=== PATIENT | male | born 1970 | race Caucasian/White ===

== ENCOUNTER 2024-05-17 21:09 | Inpatient (IN) ==
--- NOTE | 2024-05-17 21:36 | Emergency Department Note ---
Impression & Plan Pneumonia, Acute exacerbation of chronic obstructive pulmonary disease, Hypoxia, Acute respiratory acidosis ED Provider Note NAME: RIKY HUNTER AGE: 53 SEX: M : 1970 ARRIVES VIA: Walk-In INFORMANT: Patient, ED PROVIDER(S): Gary Marcos DO CHIEF COMPLAINT: Coughing HPI: The patient is a 53-year-old male who has a history of tobacco use who presented to the emergency department for an evaluation of chest pain and difficulty breathing. The patient was an inpatient at [facility]. He left there yesterday and signed himself out AGAINST MEDICAL ADVICE because they "were not taking care of me ". The patient states that he was scheduled for surgery. The patient denies having any nausea or vomiting. He does complain of chest pain and difficulty breathing especially with ambulation. He states he has had a productive cough. ROS: See above HPI for pertinent positives & negatives. A total of 10 systems reviewed and were otherwise negative. PAST MEDICAL HISTORY: See Below PAST SURGICAL HISTORY: See Below FAMILY HISTORY: See Below SOCIAL HISTORY: See Below HOME MEDICATIONS: See Below ALLERGIES: See Below VITALS: See Below PHYSICAL EXAMINATION: GENERAL: The patient is awake and alert. He is somewhat anxious appearing. EYES: The conjunctivae are clear. The pupils are round and reactive. EARS, NOSE, MOUTH AND THROAT: The nose is without any evidence of any deformity. NECK: The neck is nontender and supple. RESPIRATORY: Diminished breath sounds are noted throughout. There is wheezing in all lung hayes. There was conversational dyspnea noted. CARDIOVASCULAR: Regular rate and rhythm noted there no murmurs rubs or gallops normal S1 normal S2. GASTROINTESTINAL: The abdomen is soft. Abdomen is nontender. MUSCULOSKELETAL/EXTREMITIES: There is no evidence of gross deformity full range of motion is noted in the hips and shoulders. SKIN: There is no obvious evidence of any rash. There are no petechiae, pallor or cyanosis noted. NEUROLOGIC: Patient is awake alert and oriented x3. Gait was steady. MEDICAL DECISION MAKING: The patient is a 53-year-old male who presented to the emergency department for difficulty breathing and cough. The patient was describing chest pain and cough. The patient was recently at another facility and was admitted and being treated for pneumonia but he left AGAINST MEDICAL ADVICE and then came here. I did obtain the patient's previous records from his recent discharge. I discussed the patient's laboratory and radiographic studies with him and his family member. He was treated with IV antibiotics. He was also treated with IV steroids and DuoNeb therapy. On reevaluation he was significantly improved but still had an oxygen requirement and still had significant wheezing. I [facility] have agreed to evaluate the patient in the emergency department for further management and disposition. Triage Nursing notes reviewed. Prior medical records reviewed Vital Signs: reviewed and remarkable for hypoxia. Differential diagnosis: Reactive airway disease, pneumonia, pneumothorax, COPD, CHF, infections, cardiac ischemia, pulmonary embolism, musculoskeletal, gastrointestinal, as well as other pathologies. ER treatment provided: See below Diagnostics interpreted by me: ECG: EKG was obtained in the emergency department. My interpretation is sinus tachycardia at 105 bpm. PACs were noted. PVCs were noted. No acute ST segment abnormalities were noted. No previous tracing was available. Cardiac Monitoring: An order was placed for continuous cardiac monitoring. The monitor shows a rate of 80 bpm with sinus rhythm. Laboratory studies: As stated above and show below. Imaging studies: See below. Radiographic imaging was reviewed by myself Consultation(s): I discussed this case with Dr. North [facility] COURSE: Procedures: none Critical Care: I have personally spent greater than 35 minutes of critical care time in the direct management of this patient. This includes bedside care, interpretation of diagnostic studies, and testing, discussion with consultants, patient, and family members, and other required patient management activities. This 35 minutes is in excess of all separately billable procedures. Past Med/Surg History Problem List (Updated 05/18/24 @ 00:10 by Gary Marcos DO) Acute respiratory acidosis (Acute) Hypoxia (Acute) Acute exacerbation of chronic obstructive pulmonary disease (Acute) Pneumonia (Acute) Medical History Tobacco use Pneumonia Social History Smoking Status: Current every day smoker Feels Safe at Home: Yes Allergies Allergies Allergy/AdvReac Type Severity Reaction Status Date / Time ampicillin Allergy Unknown Verified 05/18/24 00:02 mold Allergy Unknown Verified 05/18/24 00:02 Home Meds Home Medications Medication Instructions Recorded Confirmed No Known Home Medications 05/18/24 05/18/24 Results & Data (ED) Vital Signs Vital Signs - 24 hr 05/17/24 21:15 05/17/24 21:20 05/17/24 21:20 Temperature 36.7 C Temperature Source Temporal Artery Scan Pulse Rate 88 91 H Pulse Rate from SpO2 Sensor Pulse Rhythm Regular Pulse Strength Normal Respiratory Rate 20 22 Respiratory Effort / Characteristics Non-Labored Spontaneous Respiratory Depth Normal Respiratory Pattern Blood Pressure 189/90 H Blood Pressure Mean 123 Blood Pressure Position Sitting Pulse Oximetry 87 L 83 L 83 L Oxygen Delivery Method Room Air Room Air Room Air Oxygen Flow Rate Sepsis Recent Fever Within 48 Hours No Sepsis New/Unexplained Change in Mental Status N/A Sepsis Action Taken by Nursing No Action Required 05/17/24 21:28 05/17/24 21:31 05/17/24 21:33 Temperature Temperature Source Pulse Rate 80 80 Pulse Rate from SpO2 Sensor 76 Pulse Rhythm Pulse Strength Respiratory Rate 22 22 Respiratory Effort / Characteristics Non-Labored Spontaneous Respiratory Depth Normal Respiratory Pattern Regular Blood Pressure Blood Pressure Mean Blood Pressure Position Pulse Oximetry 91 93 Oxygen Delivery Method Nasal Cannula Nasal Cannula Oxygen Flow Rate 2 2 Sepsis Recent Fever Within 48 Hours Sepsis New/Unexplained Change in Mental Status Sepsis Action Taken by Nursing 05/17/24 21:42 05/17/24 22:00 05/17/24 22:03 Temperature Temperature Source Pulse Rate 97 H 96 H 84 Pulse Rate from SpO2 Sensor 78 78 79 Pulse Rhythm Pulse Strength Respiratory Rate 22 21 23 Respiratory Effort / Characteristics Respiratory Depth Respiratory Pattern Blood Pressure 141/92 H 155/80 H 155/80 H Blood Pressure Mean 108 105 105 Blood Pressure Position Pulse Oximetry 93 97 98 Oxygen Delivery Method Nasal Cannula Nasal Cannula Nasal Cannula Oxygen Flow Rate 2 2 2 Sepsis Recent Fever Within 48 Hours Sepsis New/Unexplained Change in Mental Status Sepsis Action Taken by Nursing 05/17/24 22:30 05/17/24 23:01 Temperature Temperature Source Pulse Rate 95 H 88 Pulse Rate from SpO2 Sensor 80 78 Pulse Rhythm Pulse Strength Respiratory Rate 19 22 Respiratory Effort / Characteristics Respiratory Depth Respiratory Pattern Blood Pressure 129/89 117/76 Blood Pressure Mean 102 92 Blood Pressure Position Pulse Oximetry 90 91 Oxygen Delivery Method Nasal Cannula Nasal Cannula Oxygen Flow Rate 2 2 Sepsis Recent Fever Within 48 Hours Sepsis New/Unexplained Change in Mental Status Sepsis Action Taken by Residential Medications Current Medication List: was personally reviewed by ne Laboratory Data Attestation: I reviewed the patient's lab results. 05/17/24 21:50 05/17/24 21:50 Lab Results 05/17/24 05/17/24 05/17/24 Range/Units 21:50 21:53 Unknown WBC 14.39 H (4.8-10.8) K/ul RBC 4.80 (4.70-6.10) M/uL Hgb 13.4 L (14.0-18.0) g/dl POC Hgb 13.9 L (14.0-18.0) g/dl Hct 41.0 L (42.0-52.0) % POC Hct 41 L (42-52) % MCV 85.4 (80.0-100.0) fL MCH 27.9 (25.0-34.0) pg MCHC 32.7 (32.0-36.0) g/dL RDW Std Deviation 49.6 H (36.4-46.3) fL RDW Coeff of Stephani 15.9 H (11.5-14.5) % Plt Count 350 (130-400) K/uL MPV 10.6 (9.4-12.4) fL Immature Gran % (Auto) 1.4 % Neut % (Auto) 81.8 % Lymph % (Auto) 11.0 % [place] % (Auto) 5.1 % Eos % (Auto) 0.5 % Baso % (Auto) 0.2 % Neut # (Auto) 11.78 H (1.40-6.50) K/uL Lymph # (Auto) 1.58 (1.20-3.40) K/uL [place] # (Auto) 0.73 H (0.11-0.59) K/uL Eos # (Auto) 0.07 (0.00-0.50) K/uL Baso # (Auto) 0.03 (0.00-0.20) K/uL Immature Gran # (Auto) 0.20 (0.01-0.20) K/uL PT 10.4 (9.0-12.0) Seconds INR 1.0 (0.9-1.1) APTT 23 (21-31) Seconds PTT Ratio 0.9 VBG pH 7.30 L (7.36-7.41) VBG pCO2 63 H (38-50) mmHg VBG pO2 39 mmHg VBG HCO3 31 mmol/L VBG O2 Saturation 60.8 % VBG Base Excess 2.8 mEq/L POC Sodium 137 (135-144) mmol/L Sodium 137 (136-145) mmol/L POC Potassium 3.7 (3.3-5.0) mmol/L Potassium 3.7 (3.5-5.1) mmol/L POC Chloride 98 L (101-112) mmol/L Chloride 100 (98-107) mmol/L Carbon Dioxide 32 (21-32) mmol/L POC Total CO2 30 (24-31) mmol/L Anion Gap 5 (3-11) POC Anion Gap 13.0 L (16-25) mmol/L POC BUN 27 H (7-18) mg/dl BUN 26 H (6-23) mg/dl Creatinine 1.21 (0.6-1.4) mg/dl POC Creatinine 1.3 (0.6-1.3) mg/dl Est Cr Clr Drug Dosing 87.1 ml/min Est GFR ( Amer) 77.6 ml/min Est GFR (Non-Af Amer) 67.0 ml/min BUN/Creatinine Ratio 21.5 H (10-20) Glucose 166 H (70-99(Fasting)) mg/dl POC Glucose (other) 158 H (70-99) mg/dl Lactate 1.1 (0.4-2.0) mmol/L Calcium 8.9 (8.6-10.3) mg/dl POC Ioniz Calcium Fatimah 1.19 (1.12-1.32) mmol/l Magnesium 2.1 (1.7-2.4) mg/dl Total Bilirubin 0.4 (0.2-1.0) mg/dl Direct Bilirubin 0.1 (0-0.2) mg/dl AST 142 H (13-39) U/L ALT 169 H (7-52) U/L Alkaline Phosphatase 69 (34-104) U/L Troponin I High Sens 23.3 H (0-20) pg/ml Total Protein 6.2 (6.0-8.3) gm/dl Albumin 3.2 L (3.4-5.0) gm/dl Procalcitonin 0.46 (0-0.5) ng/ml Adenovirus (PCR) Not Detected (NotDetected) B. pertussis DNA (PCR) Not Detected (NotDetected) B.parapertussis DNA PCR Not Detected (NotDetected) C. pneumoniae DNA (PCR) Not Detected (NotDetected) Coronavirus OC43 (PCR) Not Detected (NotDetected) Coronavirus HKU1 (PCR) Not Detected (NotDetected) Coronavirus 229E (PCR) Not Detected (NotDetected) SARS-CoV-2 (PCR) Not Detected (NotDetected) Coronavirus NL63 (PCR) Not Detected (NotDetected) Human Metapneumovir PCR Not Detected (NotDetected) Influenza Type A (PCR) Not Detected (NotDetected) Influenza Type B (PCR) Not Detected (NotDetected) M. pneumoniae (PCR) Not Detected (NotDetected) Parainfluenza 1 (PCR) Not Detected (NotDetected) Parainfluenza 2 (PCR) Not Detected (NotDetected) Parainfluenza 3 (PCR) Not Detected (NotDetected) Parainfluenza 4 (PCR) Not Detected (NotDetected) RSV (PCR) Not Detected (NotDetected) Entero/Rhino (PCR) Not Detected (NotDetected) Administered Medications Discontinued Medications Albuterol (Albut/Ipratrop 3mg/0.5mg Neb 3 Ml Vial) 3 ml NEB NOW STA; Protocol Stop: 05/17/24 21:35 Last Admin: 05/17/24 21:39 Dose: 3 ml Documented By: DEMETRICE Albuterol (Albut/Ipratrop 3mg/0.5mg Neb 3 Ml Vial) 3 ml NEB NOW STA; Protocol Stop: 05/17/24 23:00 Last Admin: 05/17/24 23:19 Dose: 3 ml Documented By: MARIYA Ceftriaxone Sodium (Rocephin) 2,000 mg in 50 mls @ 100 mls/hr IV NOW STA Stop: 05/17/24 23:14 Last Infusion: 05/17/24 23:26 Dose: Infused Documented By: Admin: 05/17/24 22:58 Dose: 100 mls/hr Documented By: DEMETRICE Methylprednisolone (Methylprednisolone 125 Mg/2 Ml Vial) 125 mg IV NOW STA Stop: 05/17/24 23:00 Last Admin: 05/17/24 23:19 Dose: 125 mg Documented By: MARIYA Imaging Data Attestation: I personally reviewed and interpreted this imaging study as follows: My Impression: 1 view chest x-ray was obtained in the emergency department. My interpretation is right sided infiltrate was noted, there is no free air, final report pending. Discharge Plan Visit Data Chief Complaint: Chest Pain Stated Complaint: PNUEMONIA ED Provider: Gary Marcos Discharge Problem: Pneumonia, Acute exacerbation of chronic obstructive pulmonary disease, Hypoxia, Acute respiratory acidosis Patient Disposition: Being Evaluated by Hospitalist Forms Stand Alone Forms: My [facility], Important Visit Information Prescriptions Prescriptions: No Action No Known Home Medications Referrals Referrals: PCP,NO [Primary Care Provider] - Discharge Problem: Pneumonia Qualifiers: Pneumonia type: due to unspecified organism Laterality: right Lung location: l ower lobe of lung Qualified Code(s): J18.9 - Pneumonia, unspecified organism
[2024-05-17] MEDS: ALBUT/IPRATROP 3MG/0.5MG NEB 3 ML VIAL NEB STA ×2 (21:39→23:19)
[2024-05-17 22:02] LABS: Base Excess VBG 2.8 mEq/L; HCO3 VBG 31 mmol/L; Oxygen Saturation VBG 60.8 %; PCO2 VBG 63 mmHg (38-50); PO2 VBG 39 mmHg
[2024-05-17 22:05] LABS: iSTAT Creatinine 1.3 mg/dl (0.6-1.3); iSTAT Hemoglobin 13.9 g/dl (14.0-18.0); iSTAT Ionized Calcium 1.19 mmol/l (1.12-1.32); iSTAT Potassium 3.7 mmol/L (3.3-5.0)
[2024-05-17 22:08] LABS: Basophils # (auto) 0.03 K/uL (0.00-0.20); Basophils % (auto) 0.2 %; Eosinophils # (auto) 0.07 K/uL (0.00-0.50); Eosinophils % (auto) 0.5 %; Hemoglobin 13.4 g/dl (14.0-18.0); Immature Granulocytes % (auto) 1.4 %; Lymphocytes # (auto) 1.58 K/uL (1.20-3.40); Mean Corpuscular Hemoglobin 27.9 pg (25.0-34.0); Mean Corpuscular Hgb Conc 32.7 g/dL (32.0-36.0); Mean Corpuscular Volume 85.4 fL (80.0-100.0); Mean Platelet Volume 10.6 fL (9.4-12.4); Monocytes # (auto) 0.73 K/uL (0.11-0.59); Monocytes % (auto) 5.1 %; Neutrophils # (auto) 11.78 K/uL (1.40-6.50); Neutrophils % (auto) 81.8 %; Platelet Count 350 K/uL (130-400); RDW Coefficient of Variation 15.9 % (11.5-14.5); RDW Standard Deviation 49.6 fL (36.4-46.3); White Blood Count 14.39 K/ul (4.8-10.8)
[2024-05-17 22:25] LABS: Albumin Level 3.2 gm/dl (3.4-5.0); BUN Creatinine Ratio 21.5 (10-20); Bilirubin Direct 0.1 mg/dl (0-0.2); Bilirubin,Total 0.4 mg/dl (0.2-1.0); Calcium 8.9 mg/dl (8.6-10.3); Creatinine Clr Calc Pharmacy 87.1 ml/min; Est GFR (African American) 77.6 ml/min; Magnesium 2.1 mg/dl (1.7-2.4); Potassium 3.7 mmol/L (3.5-5.1); Total Protein 6.2 gm/dl (6.0-8.3)
[2024-05-17 22:32] LABS: Troponin I High Sensitivity 23.3 pg/ml (0-20)
[2024-05-17 22:34] LABS: Adenovirus PCR Not Detected (NotDetected); Bordetella parapertussis PCR Not Detected (NotDetected); Bordetella pertussis PCR Not Detected (NotDetected); Chlamydia pneumoniae PCR Not Detected (NotDetected); Coronavirus 229E PCR Not Detected (NotDetected); Coronavirus CoV-2 (COVID19)PCR Not Detected (NotDetected); Coronavirus HKU1 PCR Not Detected (NotDetected); Coronavirus NL63 PCR Not Detected (NotDetected); Coronavirus OC43PCR Not Detected (NotDetected); Human Metapneumovirus PCR Not Detected (NotDetected); Influenza A PCR Not Detected (NotDetected); Influenza B PCR Not Detected (NotDetected); Mycoplasma pneumoniae PCR Not Detected (NotDetected); Parainfluenza Virus 1 PCR Not Detected (NotDetected); Parainfluenza Virus 2 PCR Not Detected (NotDetected); Parainfluenza Virus 3 PCR Not Detected (NotDetected); Parainfluenza Virus 4 PCR Not Detected (NotDetected); Respiratory Syncytial VirusPCR Not Detected (NotDetected); Rhinovirus/Enterovirus PCR Not Detected (NotDetected)
[2024-05-17 22:42] LABS: Partial Thromboplastin Ratio 0.9; Partial Thromboplastin Time 23 Seconds (21-31); Prothrombin Time 10.4 Seconds (9.0-12.0)
[2024-05-17] MEDS: cefTRIAXone SODIUM 2,000 MG/50 ML BAG IV STA (22:58)
[2024-05-17] MEDS: methylPREDNISolone 125 MG/2 ML VIAL IV STA (23:19)
--- NOTE | 2024-05-17 23:53 | History & Physical Report ---
Date of Service May 17, 2024 Assessment & Plan (1) Acute respiratory failure with hypoxia: (2) Right lower lobe pneumonia: (3) Acute exacerbation of chronic obstructive pulmonary disease: (4) Chronic kidney disease (CKD), stage III (moderate): (5) History of hypokalemia: (6) Hypomagnesemia: (7) Hyperglycemia: (8) Morbid obesity with BMI of 45.0-49.9, adult: (9) Tobacco use: (10) Elevated troponin: Plan Acute respiratory failure with hypoxia/right lower lobe pneumonia with parapneumonic effusion/COPD exacerbation/obesity hypoventilation syndrome- Chest x-ray reveals a consolidated right lower lobe pneumonia, likely postobstructive Respiratory BioFire test negative Treatment at previous facility was ceftriaxone IV and azithromycin IV Will place on cefepime 2 g IV every 8 hours and Flagyl 500 mg IV every 8 hours Duonebs every 4 hours while awake and every 2 hours when necessary. Guaifenesin extended release 1200 mg p.o. every 12 hours Solu-Medrol 40 mg IV every 12 hours after receiving 125 mg IV in the ED Sputum Gram stain and culture Thoracentesis was attempted at [facility] [address], and reportedly had a dry tap N.p.o. after midnight Likely has an element of sleep apnea as well Consult pulmonology CKD stage III- Review of laboratories from outside hospital revealed initial creatinine 1.84 on 05/14, then 1.93 on 05/15, then 1.51 on 05/16 Creatinine on admission today is 1.21 NSS + KCl 20 mEq at 80 mL/h x 1 L Repeat laboratories in a.m. Elevated troponin- Troponin was 23.3 upon admission, follow-up pending Patient did have an echocardiogram performed at [facility] on 05/16/2024 with ejection fraction 60-65% Abnormal LFTs- AST 142, ALT 169 No abdominal complaints If laboratories are still elevated in the a.m., could proceed with ultrasound Suspect likely secondary metabolic syndrome. Check a fasting lipid panel and hemoglobin A1c Recent hypokalemia- Potassium on 05/14 was 2.6, 05/15 was 4.0, on 05/16 was 4.1. Potassium on admission today is 3.7 Repeat in the a.m. Hyperglycemia- Glucose 166 on admission Hold on Accu-Cheks, and will consider if glucose prior to morning Check hemoglobin A1c and fasting lipid panel History of Present Illness Chief Complaint: The patient presents to the emergency department with complaint of chest pain with inhalation, shortness of breath at rest, and dyspnea on exertion, that have persisted and worsened since he left [facility] AGAINST MEDICAL ADVICE on 05/17, where he was being treated for pneumonia. Primary Care Provider: NO PCP The patient is a 53-year-old male with a past medical history including tobacco abuse, morbid obesity, COPD and recent diagnosis of pneumonia. He reports having symptoms that began about 5 weeks ago, which consisted of generalized fatigue, weakness, chest pain with breathing, shortness of breath at rest and dyspnea on exertion. He initially went to an acute care center, then was ad vised to come to an emergency department, and he went to [facility] on 05/14. He was admitted there from 05/14-05/16 for right lower lobe pneumonia, for which he received Solu-Medrol initial dosing of 125 mg IV, DuoNeb's x 3, ceftriaxone IV, azithromycin IV, magnesium 2 g IV and potassium chloride 10 mEq IV. On 05/17, he was transferred to [facility] [address], where he underwent a thoracentesis that was reported as dry, due to consolidation in the right lower lobe. The next plan there was to undergo a bronchoscopy, however, patient left AMA, and arrived to [facility] emergency department evening of 05/17, where he was then presented for admission to the [facility] hospitalist service. Allergies Allergy/AdvReac Type Severity Reaction Status Date / Time ampicillin Allergy Unknown Verified 05/18/24 00:02 mold Allergy Unknown Verified 05/18/24 00:02 Home Medications Medication Instructions Recorded Confirmed Type No Known Home Medications 05/18/24 05/18/24 History Past Med/Surg History Problem List (Updated 05/18/24 @ 01:30 by Jose G Lema MD) Elevated troponin Morbid obesity with BMI of 45.0-49.9, adult Hyperglycemia Chronic kidney disease (CKD), stage III (moderate) Tobacco use Right lower lobe pneumonia Acute respiratory failure with hypoxia Acute respiratory acidosis (Acute) Hypoxia (Acute) Acute exacerbation of chronic obstructive pulmonary disease (Acute) Pneumonia (Acute) Medical History (Updated 05/18/24 @ 01:30 by Jose G Lema MD) Hypomagnesemia History of hypokalemia Pneumonia Social History Smoking Status: Current every day smoker Feels Safe at Home: Yes Review of Systems Review of Systems: The patient denies palpitations, lower extremity swelling, sore throat, fevers, chills, sweats, nausea, vomiting, diarrhea , constipation, abdominal pain, pelvic pain, blood in urine or stool, dysuria, urinary frequency or urgency, lightheadedness, dizziness, headache, memory loss, loss of consciousness, rash, abnormal bruising or bleeding, imbalance, focal weakness, numbness or tingling in arms or legs, back or neck pain, or night sweats. The review of systems is otherwise negative other than for that already noted above, and at least 10 systems have been reviewed. Physical Exam Physical Exam: The patient is awake, alert and oriented 3, well developed and well nourished, normocephalic and atraumatic, lying in bed and in mild respiratory distress. HEENT--PERRL, EOMI, mucous membranes and oropharynx dry. Neck--supple. No JVD. No bruits. Thyroid normal, trachea midline, no adenopathy. Heart--normal S1 and S2. No murmurs, rubs or gallops. Lungs--decreased breath sounds right base. Mild respiratory distress, no accessory muscle use. Abdomen--normal bowel sounds and soft. Nontender. Nondistended. Morbidly obese Extremities--No edema. Dermatologic--normal skin turgor, normal color, no abnormal lymph nodes, no rash. Neurologic--cranial nerves II through XII grossly intact. Rheumatologic-limited exam due to shortness of breath Psychiatric--normal affect. Results & Data Results & Data Vital Signs (Past 12 Hours) Vital Signs Temp Pulse Resp BP Pulse Ox O2 Del Method O2 Flow Rate 05/17/24 23:01 88 22 117/76 91 Nasal Cannula 2 05/17/24 22:30 95 H 19 129/89 90 Nasal Cannula 2 05/17/24 22:03 84 23 155/80 H 98 Nasal Cannula 2 05/17/24 22:00 96 H 21 155/80 H 97 Nasal Cannula 2 05/17/24 21:42 97 H 22 141/92 H 93 Nasal Cannula 2 05/17/24 21:33 80 22 93 Nasal Cannula 2 05/17/24 21:31 80 05/17/24 21:28 22 91 Nasal Cannula 2 05/17/24 21:20 91 H 22 83 L Room Air 05/17/24 21:20 83 L Room Air 05/17/24 21:15 36.7 C 88 20 189/90 H 87 L Room Air Laboratory Results Laboratory Results WBC 14.39 K/ul (4.8-10.8) H 05/17/24 21:50 RBC 4.80 M/uL (4.70-6.10) 05/17/24 21:50 Hgb 13.4 g/dl (14.0-18.0) L 05/17/24 21:50 POC Hgb 13.9 g/dl (14.0-18.0) L 05/17/24 21:53 Hct 41.0 % (42.0-52.0) L 05/17/24 21:50 POC Hct 41 % (42-52) L 05/17/24 21:53 MCV 85.4 fL (80.0-100.0) 05/17/24 21:50 MCH 27.9 pg (25.0-34.0) 05/17/24 21:50 MCHC 32.7 g/dL (32.0-36.0) 05/17/24 21:50 RDW Std Deviation 49.6 fL (36.4-46.3) H 05/17/24 21:50 RDW Coeff of Stephani 15.9 % (11.5-14.5) H 05/17/24 21:50 Plt Count 350 K/uL (130-400) 05/17/24 21:50 MPV 10.6 fL (9.4-12.4) 05/17/24 21:50 Immature Gran % (Auto) 1.4 % 05/17/24 21:50 Neut % (Auto) 81.8 % 05/17/24 21:50 Lymph % (Auto) 11.0 % 05/17/24 21:50 [place] % (Auto) 5.1 % 05/17/24 21:50 Eos % (Auto) 0.5 % 05/17/24 21:50 Baso % (Auto) 0.2 % 05/17/24 21:50 Neut # (Auto) 11.78 K/uL (1.40-6.50) H 05/17/24 21:50 Lymph # (Auto) 1.58 K/uL (1.20-3.40) 05/17/24 21:50 [place] # (Auto) 0.73 K/uL (0.11-0.59) H 05/17/24 21:50 Eos # (Auto) 0.07 K/uL (0.00-0.50) 05/17/24 21:50 Baso # (Auto) 0.03 K/uL (0.00-0.20) 05/17/24 21:50 Immature Gran # (Auto) 0.20 K/uL (0.01-0.20) 05/17/24 21:50 PT 10.4 Seconds (9.0-12.0) 05/17/24 21:50 INR 1.0 (0.9-1.1) 05/17/24 21:50 APTT 23 Seconds (21-31) 05/17/24 21:50 PTT Ratio 0.9 05/17/24 21:50 VBG pH 7.30 (7.36-7.41) L 05/17/24 21:50 VBG pCO2 63 mmHg (38-50) H 05/17/24 21:50 VBG pO2 39 mmHg 05/17/24 21:50 VBG HCO3 31 mmol/L 05/17/24 21:50 VBG O2 Saturation 60.8 % 05/17/24 21:50 VBG Base Excess 2.8 mEq/L 05/17/24 21:50 POC Sodium 137 mmol/L (135-144) 05/17/24 21:53 Sodium 137 mmol/L (136-145) 05/17/24 21:50 POC Potassium 3.7 mmol/L (3.3-5.0) 05/17/24 21:53 Potassium 3.7 mmol/L (3.5-5.1) 05/17/24 21:50 POC Chloride 98 mmol/L (101-112) L 05/17/24 21:53 Chloride 100 mmol/L (98-107) 05/17/24 21:50 Carbon Dioxide 32 mmol/L (21-32) 05/17/24 21:50 POC Total CO2 30 mmol/L (24-31) 05/17/24 21:53 Anion Gap 5 (3-11) 05/17/24 21:50 POC Anion Gap 13.0 mmol/L (16-25) L 05/17/24 21:53 POC BUN 27 mg/dl (7-18) H 05/17/24 21:53 BUN 26 mg/dl (6-23) H 05/17/24 21:50 Creatinine 1.21 mg/dl (0.6-1.4) 05/17/24 21:50 POC Creatinine 1.3 mg/dl (0.6-1.3) 05/17/24 21:53 Est Cr Clr Drug Dosing 87.1 ml/min 05/17/24 21:50 Est GFR ( Amer) 77.6 ml/min 05/17/24 21:50 Est GFR (Non-Af Amer) 67.0 ml/min 05/17/24 21:50 BUN/Creatinine Ratio 21.5 (10-20) H 05/17/24 21:50 Glucose 166 mg/dl (70-99(Fasting)) H 05/17/24 21:50 POC Glucose (other) 158 mg/dl (70-99) H 05/17/24 21:53 Lactate 1.1 mmol/L (0.4-2.0) 05/17/24 21:50 Calcium 8.9 mg/dl (8.6-10.3) 05/17/24 21:50 POC Ioniz Calcium Fatimah 1.19 mmol/l (1.12-1.32) 05/17/24 21:53 Magnesium 2.1 mg/dl (1.7-2.4) 05/17/24 21:50 Total Bilirubin 0.4 mg/dl (0.2-1.0) 05/17/24 21:50 Direct Bilirubin 0.1 mg/dl (0-0.2) 05/17/24 21:50 AST 142 U/L (13-39) H 05/17/24 21:50 ALT 169 U/L (7-52) H 05/17/24 21:50 Alkaline Phosphatase 69 U/L (34-104) 05/17/24 21:50 Troponin I High Sens 23.3 pg/ml (0-20) H 05/17/24 21:50 Total Protein 6.2 gm/dl (6.0-8.3) 05/17/24 21:50 Albumin 3.2 gm/dl (3.4-5.0) L 05/17/24 21:50 Procalcitonin 0.46 ng/ml (0-0.5) 05/17/24 21:50 Adenovirus (PCR) Not Detected (NotDetected) 05/17/24 Unknown B. pertussis DNA (PCR) Not Detected (NotDetected) 05/17/24 Unknown B.parapertussis DNA PCR Not Detected (NotDetected) 05/17/24 Unknown C. pneumoniae DNA (PCR) Not Detected (NotDetected) 05/17/24 Unknown Coronavirus OC43 (PCR) Not Detected (NotDetected) 05/17/24 Unknown Coronavirus HKU1 (PCR) Not Detected (NotDetected) 05/17/24 Unknown Coronavirus 229E (PCR) Not Detected (NotDetected) 05/17/24 Unknown SARS-CoV-2 (PCR) Not Detected (NotDetected) 05/17/24 Unknown Coronavirus NL63 (PCR) Not Detected (NotDetected) 05/17/24 Unknown Human Metapneumovir PCR Not Detected (NotDetected) 05/17/24 Unknown Influenza Type A (PCR) Not Detected (NotDetected) 05/17/24 Unknown Influenza Type B (PCR) Not Detected (NotDetected) 05/17/24 Unknown M. pneumoniae (PCR) Not Detected (NotDetected) 05/17/24 Unknown Parainfluenza 1 (PCR) Not Detected (NotDetected) 05/17/24 Unknown Parainfluenza 2 (PCR) Not Detected (NotDetected) 05/17/24 Unknown Parainfluenza 3 (PCR) Not Detected (NotDetected) 05/17/24 Unknown Parainfluenza 4 (PCR) Not Detected (NotDetected) 05/17/24 Unknown RSV (PCR) Not Detected (NotDetected) 05/17/24 Unknown Entero/Rhino (PCR) Not Detected (NotDetected) 05/17/24 Unknown Code Status & VTE Plan Code Status Full code VTE Prophylaxis Plan VTE Prophylaxis will be ordered: Yes PG Care Time/CCT Total # of Minutes Spent Total Time Spent with Patient: Total time spent is greater than 50% in coordination of care (as documented) at patient's floor/unit and/or counseling patient: Coding Level of Care Code 06546 INT INP/OBS CARE MIN Diagnoses Acute respiratory failure with hypoxia J96.01 Right lower lobe pneumonia J18.9 Acute exacerbation of chronic obstructive pulmonary disease J44.1 Chronic kidney disease (CKD), stage III (moderate) N18.30 History of hypokalemia Z86.39 Hypomagnesemia E83.42 Hyperglycemia R73.9 Morbid obesity with BMI of 45.0-49.9, adult E66.01; Z68.42 Tobacco use Z72.0 Elevated troponin R79.89
[2024-05-18] MEDS: metroNIDAZOLE 500 MG/100 ML BAG IV STA (00:20)
[2024-05-18] MEDS ORDERED: ONDANSETRON INJ 2 MG/ML 2 ML VIAL IV PRN (01:16)
[2024-05-18] MEDS ORDERED: DEXTROSE 50% 50 ML SYRINGE IV PRN ×2 (01:16→12:03)
[2024-05-18] MEDS ORDERED: CARBOHYDRATES FOR HYPOGLYCEMIA PO PRN ×2 (01:16→12:03)
[2024-05-18] MEDS ORDERED: GLUCOSE 40% GEL 15 GM TUBE PO PRN ×2 (01:16→12:03)
[2024-05-18] MEDS ORDERED: ACETAMINOPHEN 325 MG TAB PO PRN (01:16)
[2024-05-18] MEDS ORDERED: GLUCOSE 10 TAB/TUBE PO PRN ×2 (01:16→12:03)
[2024-05-18] MEDS ORDERED: GLUCAGON FOR INJ 1 MG VIAL SQ PRN ×2 (01:16→12:03)
[2024-05-18] MEDS ORDERED: CEFEPIME 20 ML IV ONE (02:00)
[2024-05-18] MEDS: NSS + 20MEQ KCL 20 MEQ/1,000 ML BAG IV SCH (02:11)
[2024-05-18 05:25] LABS: Appearance Urine Clear (Clear); Bacteria Urine Automated None Seen (None Seen); Bilirubin Urine Negative (Negative); Blood Urine Negative (Negative); Color Urine Yellow; Epithelial Cell Urine Auto 0-2 /hpf (0-2); Glucose Urine UA Negative (Negative); Ketones Urine Negative (Negative); Leukocyte Esterase Urine Negative (Negative); Nitrite Urine Negative (Negative); Protein Urine 2+ (Negative); RBC Urine Automated 0-2 /hpf (0-2); Specific Gravity Urine 1.022 (1.000-1.030); Urobilinogen Urine Negative (Negative); WBC Urine Automated 0-5 /hpf (0-5); pH Urine 6.5 (4.5-7.5)
[2024-05-18] MEDS: CEFEPIME 2,000 MG in SYRINGE 0 ML IV SCH (05:31)
[2024-05-18] MEDS: ALBUT/IPRATROP 3MG/0.5MG NEB 3 ML VIAL NEB SCH (07:01)
--- NOTE | 2024-05-18 07:09 | XRay Report ---
XR chest 1V portable HISTORY: Sepsis COMPARISON: None. FINDINGS: No pneumothorax. The heart is mildly enlarged. The left lung is clear. No acute fractures. No evidence for pulmonary edema. Small right pleural effusion and right lower lobe airspace opacity. IMPRESSION: Small right pleural effusion with a right lower lobe airspace opacity. This favors a pneumonia. Recom mend follow-up to ensure resolution. ACT 112: Positive. There are findings on this exam that require communication between the performing entity and the patient following Patient Test Result Information Act ([place] Act 112) guidelines. Electronically signed by: Harrison Calles M.D. 05/18/2024 7:08 AM
[2024-05-18 07:23] LABS: Basophils # (auto) 0.05 K/uL (0.00-0.20); Basophils % (auto) 0.3 %; Eosinophils # (auto) 0.01 K/uL (0.00-0.50); Eosinophils % (auto) 0.1 %; Hematocrit (blood only) 40.9 % (42.0-52.0); Hemoglobin 13.3 g/dl (14.0-18.0); Immature Granulocytes # (auto) 0.27 K/uL (0.01-0.20); Immature Granulocytes % (auto) 1.8 %; Lymphocytes # (auto) 1.11 K/uL (1.20-3.40); Lymphocytes % (auto) 7.5 %; Mean Corpuscular Hemoglobin 27.8 pg (25.0-34.0); Mean Corpuscular Hgb Conc 32.5 g/dL (32.0-36.0); Mean Corpuscular Volume 85.6 fL (80.0-100.0); Mean Platelet Volume 10.7 fL (9.4-12.4); Monocytes # (auto) 0.26 K/uL (0.11-0.59); Monocytes % (auto) 1.8 %; Neutrophils # (auto) 13.15 K/uL (1.40-6.50); Neutrophils % (auto) 88.5 %; Platelet Count 379 K/uL (130-400); RDW Standard Deviation 50.5 fL (36.4-46.3); Red Blood Count 4.78 M/uL (4.70-6.10); White Blood Count 14.85 K/ul (4.8-10.8)
--- NOTE | 2024-05-18 08:14 | Hospitalist Progress Note ---
Date of Service May 18, 2024 Assessment & Plan (1) Acute respiratory failure with hypoxia: Plan: Acute respiratory failure with hypoxia/right lower lobe pneumonia with parapneumonic effusion/COPD exacerbation/obesity hypoventilation syndrome- Chest x-ray reveals a consolidated right lower lobe pneumonia, concern for postobstructive Respiratory BioFire test negative Treatment at previous facility was ceftriaxone IV and azithromycin IV Will place on cefepime 2 g IV every 8 hours and Flagyl 500 mg IV every 8 hours Duonebs every 4 hours while awake and every 2 hours when necessary. Guaifenesin extended release 1200 mg p.o. every 12 hours Solu-Medrol downgrade to prednisone po Sputum Gram stain and culture Thoracentesis was attempted at [facility], and reportedly had a dry tap N.p.o. after midnight Likely has an element of sleep apnea as well, morbid obesity may impact Consult pulmonology, Ct chest with description small rind of soft tissue posterior to the bronchus intermedius and mild mass effect along a few of the right lower lobe bronchi, dense consolidation in RLL (2) Chronic kidney disease (CKD), stage III (moderate): Plan: CKD stage III- Review of laboratories from outside hospital revealed initial creatinine 1.84 on 05/14, then 1.93 on 05/15, then 1.51 on 05/16 Creatinine on admission today is 1.21 (3) Hyperglycemia: Plan: Hyperglycemia-a1c is 7.2 Glucose 166 on admission (4) Elevated troponin: Plan: Elevated troponin- Troponin was 23.3 upon admission, follow-up 15 Patient did have an echocardiogram [facility] at [facility] on 05/16/2024 with ejection fraction 60-65% (5) Tobacco use: Plan: cessation counselling offered Plan Abnormal LFTs- AST 142, ALT 169 No abdominal complaints Suspect likely secondary metabolic syndrome. Check a fasting lipid panel and hemoglobin A1c Admission and Anticipated Discharge Date Admission Date: May 17, 2024 Subjective pt is fatigued, mild shortness of breath disclosed increased glucose, educated by breastfeeding educator on lifestyle modification Physical Exam Physical Exam: pt has some mild to moderate respiratory distress absent breath sounds at the right base mild bilateral lower extremity edema Results & Data Results & Data Vital Signs (Past 12 Hours) Vital Signs Temp Pulse Pulse Resp BP BP BP 05/18/24 07:41 05/18/24 07:07 97.7 F 72 19 128/79 08/14/24 07:04 76 20 05/18/24 05:11 05/18/24 02:59 97.7 F 71 16 128/79 05/18/24 01:44 05/18/24 01:26 98.4 F 73 18 144/83 H 05/18/24 01:16 96 H 05/18/24 00:38 91 H 26 H 05/18/24 00:36 95 H 22 135/91 05/17/24 23:01 88 22 117/76 05/17/24 22:30 95 H 19 129/89 05/17/24 22:03 84 23 155/80 H 05/17/24 22:00 96 H 21 155/80 H 05/17/24 21:42 97 H 22 141/92 H 05/17/24 21:33 80 22 05/17/24 21:31 80 05/17/24 21:28 22 05/17/24 21:20 91 H 22 05/17/24 21:20 05/17/24 21:15 98.1 F 88 20 189/90 H Pulse Ox O2 Del Method O2 Flow Rate 05/18/24 07:41 Nasal Cannula 5 05/18/24 07:07 97 Nasal Cannula 5 05/18/24 07:04 93 Nasal Cannula 5 05/18/24 05:11 Nasal Cannula 5 05/18/24 02:59 94 Nasal Cannula 5.0 05/18/24 01:44 Nasal Cannula 5 05/18/24 01:26 93 Nasal Cannula 5 05/18/24 01:16 05/18/24 00:38 95 Nasal Cannula 2 05/18/24 00:36 94 Nasal Cannula 2 05/17/24 23:01 91 Nasal Cannula 2 05/17/24 22:30 90 Nasal Cannula 2 05/17/24 22:03 98 Nasal Cannula 2 05/17/24 22:00 97 Nasal Cannula 2 05/17/24 21:42 93 Nasal Cannula 2 05/17/24 21:33 93 Nasal Cannula 2 05/17/24 21:31 05/17/24 21:28 91 Nasal Cannula 2 05/17/24 21:20 83 L Room Air 05/17/24 21:20 83 L Room Air 05/17/24 21:15 87 L Room Air Laboratory Results review cbc review chemistry review A1c PG Care Time/CCT Total # of Minutes Spent Total Time Spent with Patient: Total time spent is greater than 50% in coordination of care (as documented) at patient's floor/unit and/or counseling patient: Coding Level of Care Code 09161 SUB INP/OBS CARE 3/50MIN Diagnoses Acute respiratory failure with hypoxia J96.01 Chronic kidney disease (CKD), stage III (moderate) N18.30 Hyperglycemia R73.9 Elevated troponin R79.89 Tobacco use Z72.0
[2024-05-18] MEDS: metroNIDAZOLE 500 MG/100 ML BAG IV SCH (08:21)
[2024-05-18] MEDS: guaiFENesin 600 MG TABCR PO SCH (08:21)
[2024-05-18 08:39] LABS: Albumin Globulin Ratio 1.1 (0.9-2); BUN Creatinine Ratio 22.6 (10-20); Bilirubin,Total 0.3 mg/dl (0.2-1.0); Calcium 8.3 mg/dl (8.6-10.3); Chol HDL Ratio 4.5 (0-5); Creatinine Clr Calc Pharmacy 96.5 ml/min; Est GFR (African American) 91.1 ml/min; Est GFR (Non-African American) 78.6 ml/min; Globulin 2.8 gm/dl (2.5-4.0); Magnesium 2.2 mg/dl (1.7-2.4); Potassium 4.1 mmol/L (3.5-5.1); Total Protein 5.8 gm/dl (6.0-8.3)
[2024-05-18 08:53] LABS: Estimated Average Glucose 160 mg/dl; Hemoglobin A1C 7.2 % (4.5-5.6)
--- NOTE | 2024-05-18 09:14 | Electrocardiogram Report ---
Test Reason : Blood Pressure : */* mmHG Vent. Rate : 105 BPM Atrial Rate : 105 BPM P-R Int : 122 ms QRS Dur : 94 ms QT Int : 334 ms P-R-T Axes : 58 44 42 degrees QTcB Int : 441 ms Sinus tachycardia with Premature supraventricular complexes and with occasional Premature ventricular complexes Otherwise normal ECG No previous ECGs available Confirmed by Gary Rose ([id number]) on 05/18/2024 9:13:59 AM Referred By: Confirmed By: Gary Rose
[2024-05-18] MEDS ORDERED: ALBUT/IPRATROP 3MG/0.5MG NEB 3 ML VIAL NEB PRN (09:18)
--- NOTE | 2024-05-18 09:24 | Pulmonary Consultation ---
Date of Consultation May 18, 2024 Assessment & Plan (1) Right lower lobe pneumonia: (2) Hypoxia: (3) Tobacco use: (4) Morbid obesity with BMI of 45.0-49.9, adult: Plan IMPRESSION: 53-year-old male with a significant smoking history who presents with findings of RIGHT lower lobe pneumonia with associated hypoxia and shortness of breath still requiring 5 L nasal cannula at rest. RECOMMENDATIONS: 1. RIGHT lower lobe pneumonia - Chest x-ray with concerning RIGHT lower lobe in filtrative process with surrounding effusion. Patient does not complain of episodes of aspiration otherwise. Patient can be placed on community acquired pneumonia coverage at this point. Will change him to Rocephin and doxycycline. We will provide incentive spirometry as well. Agree with CT of the chest to evaluate lung parenchyma and any structural diseases in a patient with a significant smoking history. Patient is not bronchospastic on exam today. We can de-escalate his intravenous steroids for oral therapy. Additionally, we will change his nebulizers to as needed. We will place the patient on Anoro as well for possible underlying obstructive lung dysfunction. Patient would benefit from outpatient formal pulmonary function testing. 2. Hypoxia - Multifactorial in a 53-year-old male with a greater than [id number] history of smoking, morbid obesity, and RIGHT lower lobe infiltrative process. Patient also with findings of hypercapnia on VBG which is likely resulting in degree of hypoxia as well. Patient is a dump truck driver off highway as well and complains of dependent edema in his extremities. He does not offer complaints of pleuritic pain otherwise. Will order a BNP and Dopplers of the bilateral lower extremities to assess for alternative sources of his hypoxia. Additionally, would wish to obtain the patient's echocardiogram results that were performed at outside facility. Titrate down supplemental oxygen as able. Mobilize as much as tolerated. 3. Tobacco use - Patient with substantial smoking history. He smokes 4 packs a day and has done so for the last 30 years. Patient would greatly benefit from smoking cessation. 4. Morbid obesity - Contributing to his ventilatory efforts and likely dyspnea as well. Additionally, patient likely with degree of ALIS and/or OHS. He appears well compensated at this point. Patient should be assessed with polysomnography in the outpatient setting. Thank you for allowing us to participate in the care of this pleasant patient. Pulmonary medicine will continue to follow along. Supervising Physician Co-Signing Physician Notes Patient seen and examined. EMR reviewed. Discussed with JUANITO and agree with assessment plan as noted. Images were independently reviewed. Patient CT scan demonstrates dense consolidation. VQ mismatch and likely accounts for the patient's hypoxemia. Suspect pneumonia which is partially treated at this point time. Continue with antibiotics for community-acquired pneumonia. Does not need dedicated antipseudomonal coverage or anaerobic coverage. Effusion appears too small to consider thoracentesis at this point in time. Continue bronchodilators. Will need short interval follow-up CT scan to ensure radiographic clearance. No indication for bronchoscopy or thoracentesis currently. Will continue to follow with you. Feel free to reach out with questions or concerns History of Present Illness Reason for Consultation: RLL pneumonia with hypoxia Requesting Physician: Dr. Lema Attending Physician: Ángel Al MD History of Present Illness Patient is a 53-year-old male with a significant past medical history of significant tobacco use, morbid obesity, CKD 3 who presented to the emergency department last evening with complaints of worsening shortness of breath and cough. He states that his symptoms started approximately 5 or 6 weeks ago and have slowly progressed. He states that he has had general fatigue and weakness as well as shortness of breath with any exertion. He initially went to the [facility] emergency department where he was diagnosed with an RIGHT lower lobe pneumonia. He was transferred to [facility] where he was admitted. He reports having undergone a chest CT as well as echocardiogram. He is uncertain of any other interventions that had been performed. He signed himself out AGAINST MEDICAL ADVICE on the evening of 05/17 as he was convinced that they were not providing him adequate care. He did go home shortly, but noticed ongoing dyspnea which prompted him to present to our emergency department. During evaluation, chest x-ray was concerning for RIGHT lower lobe infiltrative process. He remains hypoxic requiring 5 L nasal cannula. He was initially treated with Rocephin and then changed to cefepime and Flagyl. He has been she is receiving intravenous Solu-Medrol and qgyimx-mry-qgkxs DuoNebs. Pulmonary medicine consulted for evaluation and recommendation. Upon evaluation in room 216/1, the patient is awake, alert, and oriented. He states that he generally feels poor and is with dyspnea with any exertion. He denies complaints of chest pain, palpitations, dizziness, or lightheadedness. He states that he did notice some blood-tinged sputum over the last few days which is new. He states that he is smoked 4 packs a day for the last 30 years. 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 He reports no history of blood clots or bleeding disorders. No family history of lung cancers. He denies any prior diagnosis of pulmonary diseases, specifically COPD, asthma, or recurrent bronchitis. Admittedly, the patient has not actively been involved with medical care for the last several years. Allergies Allergy/AdvReac Type Severity Reaction Status Date / Time ampicillin Allergy Unknown Verified 05/18/24 00:02 mold Allergy Unknown Verified 05/18/24 00:02 Home Medications Medication Instructions Recorded Confirmed Type No Known Home Medications 05/18/24 05/18/24 History Patient History Medical History (Updated 05/18/24 @ 01:30 by Jose G Lema MD) Hypomagnesemia History of hypokalemia Pneumonia Social History Smoking Status: Current every day smoker Tobacco Type: Cigarettes Cigarettes Per Day: 4 packs per day; Do You Dip or Chew Tobacco: No; Tobacco Cessation Education Requested by Patient: No Hx Alcohol Use: Yes Alcohol type: hard liquor Hx Substance Use: No Preferred Language: Maltese Communication Ability: Effective Concert Manager Required: No Beliefs That Will Affect Care: None Current Living Situation: Family Current Living Situation Comment: with son Other Information That Helps Us Care for You: No Feels Safe at Home: Yes Safety Concerns: Feels Safe At This Time Assistive Devices: None Review of Systems Review of Systems: A complete 10 point review of systems was reviewed with the patient with pertinent positives and negatives as per history of present illness. All else were negative. Physical Exam 2 Physical Exam: VITAL SIGNS Vital signs and nursing notes were reviewed. GENERAL 53-year-old male appearing his stated age who is in no acute distress. Communicates well with provider and answers questions appropriately. SKIN Without rashes or lesions. NOSE Midline and without cyanosis. MOUTH/OROPHARYNX Without perioral cyanosis. NECK Neck with FROM. LUNGS Chest wall evaluation demonstrates normal chest wall A:P diameter. Auscultation reveals diminished breath sounds with delayed air entry. No wheezes or rales noted. CARDIAC RRR with S1/S2. No murmur, rubs, or gallops appreciated. ABDOMEN Abdominal inspection demonstrates obese. EXTREMITIES Nail clubbing not present. No peripheral cyanosis. Mild pretibial edema present. +3/5 radial palpated throughout. PSYCH A&Ox3 and cooperates fully with examiner. Pt is very pleasant and interacts well with examiner. Results & Data Results & Data Vital Signs (Past 12 Hours) Vital Signs Temp Pulse Pulse Resp BP BP BP 05/18/24 07:41 05/18/24 07:07 36.5 C 72 19 128/79 05/18/24 07:04 76 20 05/18/24 05:11 05/18/24 02:59 36.5 C 71 16 128/79 05/18/24 01:44 05/18/24 01:26 36.9 C 73 18 144/83 H 05/18/24 01:16 96 H 05/18/24 00:38 91 H 26 H 05/18/24 00:36 95 H 22 135/91 05/17/24 23:01 88 22 117/76 05/17/24 22:30 95 H 19 129/89 05/17/24 22:03 84 23 155/80 H 05/17/24 22:00 96 H 21 155/80 H 05/17/24 21:42 97 H 22 141/92 H 05/17/24 21:33 80 22 05/17/24 21:31 80 05/17/24 21:28 22 Pulse Ox O2 Del Method O2 Flow Rate 05/18/24 07:41 Nasal Cannula 5 05/18/24 07:07 97 Nasal Cannula 5 05/18/24 07:04 93 Nasal Cannula 5 05/18/24 05:11 Nasal Cannula 5 05/18/24 02:59 94 Nasal Cannula 5.0 05/18/24 01:44 Nasal Cannula 5 05/18/24 01:26 93 Nasal Cannula 5 05/18/24 01:16 05/18/24 00:38 95 Nasal Cannula 2 05/18/24 00:36 94 Nasal Cannula 2 05/17/24 23:01 91 Nasal Cannula 2 05/17/24 22:30 90 Nasal Cannula 2 05/17/24 22:03 98 Nasal Cannula 2 05/17/24 22:00 97 Nasal Cannula 2 05/17/24 21:42 93 Nasal Cannula 2 05/17/24 21:33 93 Nasal Cannula 2 05/17/24 21:31 05/17/24 21:28 91 Nasal Cannula 2 PG Care Time/CCT Total # of Minutes Spent Total Time Spent with Patient: Total time spent is greater than 50% in coordination of care (as documented) at patient's floor/unit and/or counseling patient: Coding Level of Care Code 57780 OFFICE CONSULT LVL M Diagnoses Right lower lobe pneumonia J18.9 Hypoxia R09.02 Tobacco use Z72.0 Morbid obesity with BMI of 45.0-49.9, adult E66.01; Z68.42
[2024-05-18] MEDS: DOXYCYCLINE HYCLATE 100 MG in DEXTROSE 5% MINI-B 100 ML IV SCH (10:12)
--- NOTE | 2024-05-18 10:25 | CT Scan Report ---
CT chest diagnostic wo con CT DOSE: 916.43 mGy.cm HISTORY: Abnormal chest x-ray. eval dense RLL TECHNIQUE: Multiaxial CT images of the chest were performed without contrast. A dose lowering techni que was utilized adhering to the principles of ALARA. COMPARISON: Chest 05/18/2024. FINDINGS: No pneumothorax. There is a small right pleural effusion with dense consolidation within th e majority of the right lower lobe. There is mild mass effect along the right lower lobe bronchi. How ever, the majority of the air bronchograms within the right lower lobe persist. Therefore, these find ings favor a pneumonia. However, there is a small rind of soft tissue posterior to the bronchus inter medius best seen on image 104. Therefore, follow-up CT and/or bronchoscopy recommended to exclude the possibility of an underlying pulmonary mass. There is a 6 mm subpleural nodule along the right minor fissure on image 130. A few linear densities within the right middle lobe are noted. Faint patchy gr oundglass densities within the upper lobes also favor mild inflammatory/infectious change. A 3 mm sub pleural nodule within the left upper lobe on image 116. Linear densities at the base of the left lowe r lobe favor subsegmental atelectasis. There is an old nonunited left posterior 11th rib fracture. No suspicious lytic or blastic osseous lesions. Limited views of the upper abdomen demonstrate hepatic steatosis and a normal spleen. The visualized right adrenal gland is unremarkable. There is a low-den sity 15 mm left adrenal gland nodule which favors a benign adenoma. Normal thyroid gland. Normal esop hagus. The heart is normal in size. No pericardial effusion. Normal caliber thoracic aorta. Mild righ t paratracheal, subcarinal, and right hilar lymphadenopathy. This is likely reactive to the suspected pneumonia. IMPRESSION: 1. Dense consolidation throughout the majority of the right lower lobe with scattered air bronchogram s likely representing a pneumonia. However, there is a small rind of soft tissue posterior to the bro nchus intermedius and mild mass effect along a few of the right lower lobe bronchi. Therefore, short- term follow-up chest CT to ensure resolution and/or bronchoscopy recommended to exclude the possibili ty of an underlying pulmonary mass. 2. Small right pleural effusion. 3. Faint patchy groundglass densities within the upper lobes favor additional areas of mild inflammat ory/infectious change. 4. Mild mediastinal and right hilar lymphadenopathy. This is likely reactive. Attention at follow-up recommended. ACT 112: Positive. There are findings on this exam that require communication between the performing entity and the patient following Patient Test Result Information Act ([place] Act 112) guidelines. Electronically signed by: Harrison Calles M.D. 05/18/2024 10:24 AM
[2024-05-18] MEDS: UMECLIDINIUM/VILANTEROL 62.5/25MCG 7 PUFFS/INHALER INH SCH (10:34)
--- NOTE | 2024-05-18 14:28 | Ultrasound Report ---
BILATERAL LOWER EXTREMITY VENOUS DOPPLER CLINICAL HISTORY: Bilateral lower extremity edema. Hypoxia. COMPARISON STUDY: No previous studies for comparison. TECHNIQUE: Sonography of the deep venous system of the bilateral lower extremities was performed. Co mpression and augmentation were evaluated. FINDINGS: The bilateral common femoral, superficial femoral and popliteal veins were compressible. A ugmentation was normal. Flow was shown within the deep calf vessels. IMPRESSION: No evidence of deep venous thrombus within the bilateral lower extremities. ACT 112: Negative or not required by law. Electronically signed by: Alex Perez M.D. 05/18/2024 2:26 PM
[2024-05-18] MEDS: INSULIN ASPART PER UNIT CHARGE SC SCH (16:50)
[2024-05-18] MEDS ORDERED: methylPREDNISolone 40 MG in SYRINGE 0 ML IV SCH (20:00)
[2024-05-18] MEDS ORDERED: methylPREDNISolone 1000 MG/16 ML IV SCH (20:00)
[2024-05-18] MEDS: cefTRIAXone SODIUM 2,000 MG/50 ML BAG IV SCH (20:25)
--- NOTE | 2024-05-19 07:54 | Pulmonology Progress Note ---
Date of Service May 19, 2024 Assessment & Plan (1) Right lower lobe pneumonia: (2) Hypoxia: (3) Tobacco use: (4) Morbid obesity with BMI of 45.0-49.9, adult: Plan IMPRESSION: 53-year-old male with a significant smoking history who presents with findings of RIGHT lower lobe pneumonia with associated hypoxia and shortness of breath still requiring 5 L nasal cannula at rest. He is significantly improved with antibiotics. RECOMMENDATIONS: 1. RIGHT lower lobe pneumonia - Chest x-ray with concerning RIGHT lower lobe infiltrative process with surrounding effusion. There are bronchograms throughout the consolidation which would argue against an obstructive process. Can de-escalate antibiotics to oral doxycycline and oral Ceftin. Complete antibiotics for an additional 3 days. Will need follow-up imaging with a CT scan in 6 to 8 weeks. If the radiographic opacity persists, additional evaluation may be warranted. 2. Hypoxia -improved/resolving. Recommend to step prior to discharge. 3. Tobacco use - Patient with substantial smoking history. He smokes 4 packs a day and has done so for the last 30 years. Patient would greatly benefit from smoking cessation. Outpatient PFTs recommended. No wheezing. The patient is at risk for COPD. Discontinue steroids at this point in time. Continue Anoro and as needed albuterol 4. Morbid obesity - Contributing to his ventilatory efforts and likely dyspnea as well. Additionally, patient likely with degree of ALIS and/or OHS. He appears well compensated at this point. Patient should be assessed with polysomnography in the outpatient setting. 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 From a pulmonary standpoint, he can likely be dismissed with outpatient follow-up as noted above. Feel free to contact us with questions or concerns. Admission and Anticipated Discharge Date Admission Date: May 17, 2024 Subjective Patient seen and examined. EMR reviewed. Patient reports he is feeling better. He continues to have intermittent cough which is nonproductive. No fevers or chills overnight. No hemoptysis. He is tolerating a diet. No dysphagia. Denies chest pain palpitations or significant lower extremity edema. He overall feels improved. He has been weaned down to a minimal amount of oxygen. Review of Systems 2 Review of Systems: All systems reviewed & are unremarkable except as noted in Subjective Physical Exam 2 Constitutional: WD/WN, vitals as above + morbidly obese Neck: trachea midline, no thyromegaly Respiratory: no respiratory distress, no labored breathing and not tachypneic Auscultation: + diminished lung sounds; no crackles and no wheezes Cardiovascular: RRR, no murmur, no edema Gastrointestinal (Abdomen): normal bowel sounds, soft, nontender, no hepatosplenomegaly Musculoskeletal: Extremities: extremities normal to inspection Skin: no rashes, warm and dry Neurologic: Nonfocal exam Lymphatic: no cervical lymphadenopathy Results & Data Results & Data Vital Signs (Past 12 Hours) Vital Signs Temp Pulse Pulse Resp BP Pulse Ox Pulse Ox 05/19/24 07:28 36.5 C 73 18 135/79 92 05/19/24 03:35 36.3 C L 78 18 115/72 90 05/19/24 01:16 94 05/18/24 22:33 36.4 C L 81 18 144/85 H 94 05/18/24 22:05 72 05/18/24 21:19 95 O2 Del Method O2 Del Method O2 Flow Rate O2 Flow Rate 05/19/24 07:28 Room Air 05/19/24 03:35 Nasal Cannula 2 05/19/24 01:16 Nasal Cannula 3 05/18/24 22:33 Room Air 05/18/24 22:05 05/18/24 21:19 Nasal Cannula 3 Laboratory Results 05/18/24 06:56 05/18/24 08:02 PG Care Time/CCT Total # of Minutes Spent Total Time Spent with Patient: Total time spent is greater than 50% in coordination of care (as documented) at patient's floor/unit and/or counseling patient: Coding Level of Care Code 63267 SUB INP/OBS CARE 2/35MIN Diagnoses Right lower lobe pneumonia J18.9 Hypoxia R09.02 Tobacco use Z72.0 Morbid obesity with BMI of 45.0-49.9, adult E66.01; Z68.42
[2024-05-19 08:37] LABS: Hematocrit (blood only) 41.5 % (42.0-52.0); Hemoglobin 13.6 g/dl (14.0-18.0); Mean Corpuscular Hemoglobin 27.6 pg (25.0-34.0); Mean Corpuscular Hgb Conc 32.8 g/dL (32.0-36.0); Mean Corpuscular Volume 84.3 fL (80.0-100.0); Mean Platelet Volume 10.8 fL (9.4-12.4); Platelet Count 440 K/uL (130-400); RDW Coefficient of Variation 15.8 % (11.5-14.5); RDW Standard Deviation 48.7 fL (36.4-46.3); Red Blood Count 4.92 M/uL (4.70-6.10); White Blood Count 16.24 K/ul (4.8-10.8)
[2024-05-19 08:44] LABS: Albumin Globulin Ratio 1.1 (0.9-2); Bilirubin,Total 0.4 mg/dl (0.2-1.0); Calcium 8.5 mg/dl (8.6-10.3); Creatinine Clr Calc Pharmacy 103.7 ml/min; Est GFR (African American) 97.8 ml/min; Est GFR (Non-African American) 84.4 ml/min; Globulin 2.7 gm/dl (2.5-4.0); Potassium 3.8 mmol/L (3.5-5.1); Total Protein 5.7 gm/dl (6.0-8.3)
[2024-05-19] MEDS ORDERED: predniSONE 20 MG TAB PO SCH (09:00)
[2024-05-19 09:22] LABS: Basophils % (auto) 0.6 %; Eosinophils # (auto) 0.19 K/uL (0.00-0.50); Eosinophils % (auto) 1.2 %; Immature Granulocytes # (auto) 0.81 K/uL (0.01-0.20); Lymphocytes # (auto) 1.85 K/uL (1.20-3.40); Lymphocytes % (auto) 11.4 %; Monocytes # (auto) 0.68 K/uL (0.11-0.59); Monocytes % (auto) 4.2 %; Neutrophils # (auto) 12.61 K/uL (1.40-6.50); Neutrophils % (auto) 77.6 %
[2024-05-19] MEDS: cefUROXime axetil 500 MG TAB PO SCH (09:22)
[2024-05-19] MEDS: DOXYCYCLINE HYCLATE 100 MG CAP PO SCH (09:22)
[2024-05-19 11:23] VITALS: O2SAT 90
[2024-05-19 15:25] VITALS: BP 147/77; PULSE 76; RESP 18; TEMP 98.6
--- NOTE | 2024-05-19 17:06 | Discharge Summary ---
Discharge Summary Date of Service May 19, 2024 Principal Dx & Hospital Course #1 = Principal Diagnosis (1) Acute respiratory failure with hypoxia: Acute respiratory failure with hypoxia/right lower lobe pneumonia with parapneumonic effusion/COPD exacerbation/obesity hypoventilation syndrome- Chest x-ray reveals a consolidated right lower lobe pneumonia, initial concern postobstructive pneumonia relieved with air bronchograms on ct Respiratory BioFire test negative will need oxygen with exertion at discharge 2 L, cefuroxime and doxycycline po, breo will need follow up cxr in a month consider pulmonary referral Likely has an element of sleep apnea as well, morbid obesity may impact (2) Chronic kidney disease (CKD), stage III (moderate): CKD stage III- Review of laboratories from outside hospital revealed initial creatinine 1.84 on 05/14, then 1.93 on 05/15, then 1.51 on 05/16 Creatinine on admission is 1.21 (3) Hyperglycemia: Hyperglycemia-a1c is 7.2 Glucose 166 on admission [facility] consultant councelled on lifestyle modification (4) Elevated troponin: Elevated troponin-demand ischemia from hypoxia and illness Troponin was 23.3 upon admission, follow-up 15 Patient did have an echocardiogram performed at [facility] on 05/16/2024 with ejection fraction 60-65% (5) Tobacco use: cessation counselling offered Plan Abnormal LFTs- AST 142, ALT 169 No abdominal complaints Suspect likely secondary metabolic syndrome. Check a fasting lipid panel and hemoglobin A1c Notes For Next Care Provider will need oxygen with exertion at discharge 2 L, cefuroxime and doxycycline po, breo will need follow up cxr for resolution consider pulmonary referral Likely has an element of sleep apnea as well, morbid obesity may impact Admission HPI Per Admitting Provider The patient is a 53-year-old male with a past medical history including tobacco abuse, morbid obesity, COPD and recent diagnosis of pneumonia. He reports having symptoms that began about 5 weeks ago, which consisted of generalized fatigue, weakness, chest pain with breathing, shortness of breath at rest and dyspnea on exertion. He initially went to an acute care center, then was advised to come to an emergency department, and he went to [facility] on 05/14. He was admitted there from 05/14-05/16 for right lower lobe pneumonia, for which he received Solu-Medrol initial dosing of 125 mg IV, DuoNeb's x 3, ceftriaxone IV, azithromycin IV, magnesium 2 g IV and potassium chloride 10 mEq IV. On 05/17, he was transferred to [facility], where he underwent a thoracentesis that was reported as dry, due to consolidation in the right lower lobe. The next plan there was to undergo a bronchoscopy, however, patient left AMA, and arrived to [facility] emergency department evening of 05/17, where he was then presented for admission to the [facility] hospitalist service. Discharge Exam Pleasant offered to have stay another day wanted to leave agrees to home oxygen, has no insurance, will agree to pay for it cardiac is regular lungs with wheezes RLL Discharge Plan Discharge Items Patient Disposition: Home - Self-Care Reason For Visit: RLL PNEUMONIA WITH HYPOXIA Discharge Diagnosis: right lower lung pneumonia low oxygen levels with exertion elevated blood sugar level consistent with diabetes Activity: Per Instructions section Activity Comment: rest and recover Non-emergency contact: Primary Care Provider Call non-emergency contact if: your symptoms worsen Follow-up/Referrals: PCP,NO [Primary Care Provider] - Diet: Carb Consistent or DM2 Addtl Attending Provider Instructions: complete all your antibiotics , follow up with primary care, will need to have a repeat CXR in about a month please limit sugary food intake and especially sugary drinks, you have elevated blood sugar in the range of a diabetic but with watching your diet and exercise when you recover from your pneumonia you may be able to loose weight and not need medicines, please also discuss this with your primary care Pending Studies at Discharge: No Stand-Alone Forms: My [facility] CoinKeeper, Smoking Cessation Medications and DC Order Prescriptions: New doxycycline hyclate 100 mg Capsule 100 mg PO BID Qty: 10 0RF cefuroxime axetil 500 mg Tablet 500 mg PO BID 10 Days Qty: 20 0RF Anoro Ellipta 62.5-25 mcg/actuation Blister With Device 1 inh inhalation DAILY Qty: 1 0RF (DME) Oxygen Home Liters Per Minute See Rx Instructions .ROUTE Qty: 2 0RF Rx Instructions: As directed Discharge Orders: Discharge Order (Routine); Ordered 05/19/24 Ordered By: Ángel Al Admission Data Admit Date/Time: 05/17/24 23:53 Attending Provider: Ángel Al Admit Provider: Jose G Lema Primary Care Provider: PCP,NO Other Providers: Jose G Lema; Deshaun Murillo Other Interventions: Discharge Summary Assessment (RN) Last Done: 05/19/24 15:05 Hospital Stay Data Consultations 05/17/24 23:58 ED Decision to Admit Stat 05/18/24 01:16 Consult Pulmonology Routine Diagnostic Imagining Performed 05/18/24 08:13 CT chest diagnostic wo con Routine 05/18/24 09:42 US venous duplex leg [US venous doppler LE BI] Urgent Pending Results Patient Have Any Pending Studies at Discharge: No Discharge Instructions Given to Patient (Per Discharging Provider) complete all your antibiotics , follow up with primary care, will need to have a repeat CXR in about a month please limit sugary food intake and especially sugary drinks, you have elevated blood sugar in the range of a diabetic but with watching your diet and exercise when you recover from your pneumonia you may be able to loose weight and not need medicines, please also discuss this with your primary care Total Time Total Time Spent Total Time Spent (In Minutes): It required greater than 30 minutes to prepare this patient for discharge. Coding Level of Care Code 71677 INP/OBS DISCH >30 MIN Diagnoses Acute respiratory failure with hypoxia J96.01 Chronic kidney disease (CKD), stage III (moderate) N18.30 Hyperglycemia R73.9 Elevated troponin R79.89 Tobacco use Z72.0
== END 2024-05-19 15:56 | disposition home or self-care (01) | DRG 193 ==
LOC: ED 21:09 → SUATTDRO 23:53 → 2S 23:53
DX: I24.89 Other forms of acute ischemic heart disease; Z11.52 Encounter for screening for COVID-19; E66.2 Morbid (severe) obesity with alveolar hypoventilation; E83.42 Hypomagnesemia; E88.810 Metabolic syndrome; J44.0 Chronic obstructive pulmonary disease with (acute) lower respiratory infection; R73.9 Hyperglycemia, unspecified; J96.02 Acute respiratory failure with hypercapnia; Z86.39 Personal history of other endocrine, nutritional and metabolic disease; J96.01 Acute respiratory failure with hypoxia; Z88.0 Allergy status to penicillin; Z68.42 Body mass index [BMI] 45.0-49.9, adult; F17.210 Nicotine dependence, cigarettes, uncomplicated; J18.9 Pneumonia, unspecified organism